=== PATIENT | male | born 1975 ===

== ENCOUNTER 2022-11-11 03:57 | Day surgery (SDC) | payer BC, OTHER ==
[2022-11-09 17:53] VITALS: BMI 26.4
[2022-11-11] MEDS ORDERED: LIDOCAINE HCL 1%, 10 MG/ML (10ML VIAL) MDV ONE (07:19)
[2022-11-11] MEDS ORDERED: MIDAZOLAM HCL 2 MG/2 ML SINGLE DOSE VIAL ONE (08:38)
[2022-11-11] MEDS ORDERED: ROCURONIUM BROMIDE 50 MG/5 ML SYRINGE ONE (08:38)
[2022-11-11] MEDS ORDERED: LIDOCAINE 1%/EPI 1:100000 (20 ML MULTI DOSE VIAL) INF ONE (08:44)
[2022-11-11] MEDS ORDERED: COCAINE HCL 4% TOPICAL SOLUTION 4 ML BOTTLE TP ONE ×2 (08:44→08:54)
[2022-11-11] MEDS ORDERED: PROPOFOL 20 ML ONE (09:43)
[2022-11-11] MEDS ORDERED: NEOSTIGMINE METHYLSULFATE 0.5 MG/1 ML - 10 ML MDV ONE (09:49)
[2022-11-11] MEDS ORDERED: ACETAMINOPHEN 500 MG TABLET (FP) PO PRN (11:07)
[2022-11-11] MEDS ORDERED: oxyCODONE HCL 5 MG TABLET PO PRN (11:07)
[2022-11-11] MEDS ORDERED: ONDANSETRON 4 MG/2 ML VIAL IVPUSH PRN (11:07)
[2022-11-11] MEDS ORDERED: ACETAMINOPHEN 1000 MG/100 ML BAG IVPB ONE ×2 (11:08→11:11)
[2022-11-11] MEDS ORDERED: LACTATED RINGERS SOLUTION 1,000 ML IV SCH (11:15)
[2022-11-11 12:25] VITALS: RESP 18
[2022-11-11] MEDS ORDERED: BACITRACIN ZINC 15 GM TUBE TOPICAL OINTMENT ONE (13:18)
[2022-11-11 13:23] VITALS: BP 118/83; PULSE 67; TEMP 98.2
== END 2022-11-11 14:00 | disposition home or self-care (01) ==
LOC: JASU-SURG 03:57
PROVIDERS: ATTEND Otolaryngology
PROC: 09DV4ZZ Extraction of Left Ethmoid Sinus, Percutaneous Endoscopic Approach (ICD-10-PCS; 2022-11-11)
PROC: 09DU4ZZ Extraction of Right Ethmoid Sinus, Percutaneous Endoscopic Approach (ICD-10-PCS; 2022-11-11)
PROC: 8E09XBZ Computer Assisted Procedure of Head and Neck Region (ICD-10-PCS; 2022-11-11)
PROC: 09BK8ZZ Excision of Nasal Mucosa and Soft Tissue, Via Natural or Artificial Opening Endoscopic (ICD-10-PCS; principal; 2022-11-11 09:00)
DX: J32.4 Chronic pansinusitis (principal); J33.9 Nasal polyp, unspecified; G47.00 Insomnia, unspecified
CPT/HCPCS: 88304-TC; 94760